=== PATIENT | female | born 1940 | race Native Hawaiian/Other Pacific Islander ===

== ENCOUNTER 2016-08-30 18:13 | Emergency (ER) | payer OTHER ==
[~2016-08-30] VITALS: Ht 157.5 cm; Wt 81.2 kg
[~2016-08-30 18:13] MED LIST: CELEXA20 MG PO; CLARITIN10 MG PO; CYCL10TA35 PO; FURO20TA67 PO; HEARTBURN150 MG PO; LAMICTAL ODT100 MG PO; LISI20TA11 PO; MECLIZINE25 M1 PO; MELOXICAM15 MG PO; METOPROLOL25 M1 PO; NASONEX50 MCG/AC; NEXIUM40 M1 PO; OMEP40CA PO; RANI150T78 PO; SINGULAIR10 MG PO; TRAM50TA PO; TRAZ100T PO; TRAZODONE300 MG PO; VENLAFAXINE75 M2 PO
[2016-08-30 19:45] LABS: PLATELET COUNT 230 K/uL (152-353)
[2016-08-30 20:05] LABS: POTASSIUM 3.4 mmol/L (3.6-5.2)
[2016-08-30 21:26] VITALS: BP 167/61; TEMP 99.1
== END 2016-08-30 21:10 | disposition home or self-care (01) ==
LOC: ED 18:13
PROVIDERS: Emergency Medicine
DX: J11.1 Influenza due to unidentified influenza virus with other respiratory manifestations (principal); J98.01 Acute bronchospasm
CPT/HCPCS: 36415; 80053; 85027; 87081; 87804; 87880; 96372; 99283; J2930

== ENCOUNTER 2017-05-27 17:01 | Emergency (ER) | payer OTHER ==
[~2017-05-27] VITALS: Ht 157.5 cm; Wt 79.4 kg
[2017-05-27 17:04] VITALS: TEMP 97.8
[2017-05-27 18:48] VITALS: BP 182/80
== END 2017-05-27 19:05 | disposition home or self-care (01) ==
LOC: ED 17:01
DX: S00.83XA Contusion of other part of head, initial encounter (principal); S50.812A Abrasion of left forearm, initial encounter; M47.892 Other spondylosis, cervical region; W01.0XXA Fall on same level from slipping, tripping and stumbling without subsequent striking against object, initial encounter; Y92.098 Other place in other non-institutional residence as the place of occurrence of the external cause
CPT/HCPCS: 96372; 99283; J1885

== ENCOUNTER 2017-05-31 14:12 | Outpatient (CLI) | payer OTHER ==
[2017-05-31] MEDS ORDERED: RANITIDINE 150150 MG PO (15:31)
[2017-05-31] MEDS ORDERED: MECLIZINE25 MG OR (15:32)
[2017-05-31] MEDS ORDERED: KETO10TA34 PO (15:33)
[2017-05-31] MEDS ORDERED: ALLEGRA ALRG180 M1 PO (15:34)
== END 2017-05-31 14:17 | disposition short-term general hospital (02) ==
LOC: AMB 14:12
DX: R51 Headache (principal); R11.2 Nausea with vomiting, unspecified; W18.39XA Other fall on same level, initial encounter; Y92.098 Other place in other non-institutional residence as the place of occurrence of the external cause
CPT/HCPCS: A0425; A0427

== ENCOUNTER 2017-05-31 14:17 | Inpatient (IN) | payer OTHER ==
[~2017-05-31] VITALS: Ht 160 cm; Wt 82.3 kg
[2017-05-31 14:25] VITALS: BP 215/88; TEMP 98.5
[2017-05-31 14:58] LABS: PLATELET COUNT 266 K/uL (152-353)
[2017-05-31 14:59] LABS: POTASSIUM 3.7 mmol/L (3.6-5.2); SODIUM 141 mmol/L (136-145)
[2017-05-31 15:25] VITALS: BP 150/88
[2017-05-31] MEDS ORDERED: RANITIDINE 150150 MG PO (15:31)
[2017-05-31] MEDS ORDERED: MECLIZINE25 MG OR (15:32)
[2017-05-31] MEDS ORDERED: KETO10TA34 PO (15:33)
[2017-05-31] MEDS ORDERED: ALLEGRA ALRG180 M1 PO (15:34)
[2017-05-31 18:26] VITALS: BP 156/61; TEMP 98.3; Ht 160 cm; Wt 82.3 kg
[2017-05-31 20:00] VITALS: BP 152/61; TEMP 98
[2017-06-01] VITALS: BP 166/68; BP 98/50; TEMP 98.6; TEMP 99.2
[2017-06-01 04:00] VITALS: BP 158/65; TEMP 98.7
--- NOTE | 2017-06-01 05:24 | NUR ---
05/31/17 1930: PT EXPERIENCING A LOT OF PAIN, HEADACHE. PT ALLERGIC TO MULTIPLE MEDICATIONS. STATED TORDOL DID NOT HELP WITH HER PAIN. PT ALSO HAS NAUSEA AND VOMITING.ZOFRAN HAD BEEN GIVEN AT 1700. ER DOCTOR NOTIFIED AT 1945 FOR PAIN MED THAT PT WAS NOT ALLERGIC TO. ORDER RECEIVED. 05/31/17 2100: ANOTHER DOSE OF ZOFRAN GIVEN. 05/31/17 2300: PT CONTINUES TO BE NAUSEATED AND VOMITING SMALL AMOUNTS. UNABLE TO DRINK OR EAT. ER DOCTOR NOTIFIED ABOUT VOMITING, ORDERS RECEIVED.
--- NOTE | 2017-06-01 05:34 | NUR ---
05/31/17 2345:IV FLUID,NS AT 76, GOING. STATED TO TRY FLUIDS FIRST BEFORE GIVING PHENERGAN.
--- NOTE | 2017-06-01 05:42 | NUR ---
06/01/17 0200: PT RESTING WELL, NO FURTHER VOMITING. PT HAS NOT ASKED FOR PAIN MED OR FOR NAUSEA MED.
[2017-06-01 06:06] LABS: POTASSIUM 3.5 mmol/L (3.6-5.2); SODIUM 137 mmol/L (136-145)
[2017-06-01 08:00] VITALS: BP 109/79; TEMP 97.7
[2017-06-01 08:21] LABS: PLATELET COUNT 264 K/uL (152-353)
[2017-06-01 12:00] VITALS: BP 110/65; TEMP 98
[2017-06-01 16:00] VITALS: BP 148/60; TEMP 100.2
[2017-06-01 20:00] VITALS: BP 139/58; TEMP 98.7
[2017-06-02] VITALS: BP 154/61; TEMP 98.6
[2017-06-02 04:00] VITALS: BP 138/54; TEMP 98.6
[2017-06-02 05:43] LABS: POTASSIUM 3.3 mmol/L (3.6-5.2); SODIUM 140 mmol/L (136-145)
[2017-06-02 05:48] LABS: PLATELET COUNT 218 K/uL (152-353)
[2017-06-02 08:00] VITALS: BP 163/65; TEMP 97.9
[2017-06-02 12:00] VITALS: BP 118/51; TEMP 98
[2017-06-02 16:00] VITALS: BP 149/63; TEMP 98.1
[2017-06-02 20:00] VITALS: BP 156/61; TEMP 98.5
[2017-06-03] VITALS: BP 139/59; TEMP 98.7
[2017-06-03 04:00] VITALS: BP 154/69; TEMP 98.6
[2017-06-03 05:35] LABS: PLATELET COUNT 205 K/uL (152-353)
[2017-06-03 05:56] LABS: POTASSIUM 3.6 mmol/L (3.6-5.2); SODIUM 138 mmol/L (136-145)
[2017-06-03 08:00] VITALS: BP 149/71; TEMP 98
[2017-06-03 12:00] VITALS: BP 140/67; TEMP 98
[2017-06-03 16:00] VITALS: BP 183/74; TEMP 98
[2017-06-03 20:00] VITALS: BP 159/60; TEMP 98.6
[2017-06-04] VITALS: BP 167/70; TEMP 98.6
[2017-06-04 04:00] VITALS: BP 166/67; TEMP 97.3
[2017-06-04 05:33] LABS: PLATELET COUNT 206 K/uL (152-353)
[2017-06-04 06:05] LABS: POTASSIUM 4.2 mmol/L (3.6-5.2); SODIUM 139 mmol/L (136-145)
[2017-06-04 08:00] VITALS: BP 155/62; TEMP 97.5
[2017-06-04 12:00] VITALS: BP 164/68; TEMP 98
[2017-06-04 16:00] VITALS: BP 164/68; TEMP 98
[2017-06-04 20:00] VITALS: BP 157/52; TEMP 98.4
[2017-06-05] VITALS: BP 160/86; TEMP 98.3
[2017-06-05 04:00] VITALS: BP 163/54; TEMP 98.2
[2017-06-05 06:31] LABS: PLATELET COUNT 199 K/uL (152-353)
[2017-06-05 06:43] LABS: POTASSIUM 3.3 mmol/L (3.6-5.2); SODIUM 139 mmol/L (136-145)
[2017-06-05 08:00] VITALS: BP 165/65; TEMP 98.6
[2017-06-05 11:46] VITALS: BP 157/51; TEMP 98.7
--- NOTE | 2017-06-05 14:23 | NUR ---
GAVE A FLEETS ENEMA. PT KATRINA WELL.
[2017-06-05 16:00] VITALS: BP 179/68; TEMP 98.6
--- NOTE | 2017-06-05 17:52 | NUR ---
PT C/O MID CHEST/EPIGASTRISC PAIN 09/26. PT VOMITING AFTER EATING RICE. PT STATED SHE FELT LIKE IT WAS INDIGESTION OR SHE SWALLOWED AIR. DR. EPSTEIN NOTIFIED.
[2017-06-05 20:00] VITALS: BP 166/57; TEMP 98
[2017-06-06] VITALS: BP 145/66; TEMP 97.3
[2017-06-06 04:00] VITALS: BP 140/70; TEMP 98
[2017-06-06 07:04] LABS: POTASSIUM 3.7 mmol/L (3.6-5.2); SODIUM 139 mmol/L (136-145)
[2017-06-06 07:09] LABS: PLATELET COUNT 224 K/uL (152-353)
[2017-06-06 08:00] VITALS: BP 173/78; TEMP 97.9
[2017-06-06 12:00] VITALS: BP 131/57; TEMP 98
[2017-06-06 16:00] VITALS: BP 162/67; TEMP 98
[2017-06-06] MEDS ORDERED: AMLODIPINE BESYLATE PO (18:02)
== END 2017-06-06 18:15 | disposition home or self-care (01) | DRG 78 ==
LOC: ED 14:17 → MED/SURG 14:50
PROVIDERS: Emergency Medicine; ADMIT Family Medicine
DX: I67.4 Hypertensive encephalopathy (principal); I16.1 Hypertensive emergency; R51 Headache; R11.2 Nausea with vomiting, unspecified; R53.1 Weakness; D72.828 Other elevated white blood cell count; E83.42 Hypomagnesemia; E88.09 Other disorders of plasma-protein metabolism, not elsewhere classified; K59.09 Other constipation
CPT/HCPCS: 36415; 80053; 83735; 85027; 87804; 94760; 96365; 96366; 96374; 96375; 99284; J0360; J1885; J2300; J2405; J3475

== ENCOUNTER 2018-02-06 20:25 | Emergency (ER) | payer OTHER ==
[~2018-02-06] VITALS: Ht 157.5 cm; Wt 77.1 kg
[~2018-02-06 20:25] MED LIST changes: +ALLEGRA ALRG180 M1 PO; +AMLODIPINE BESYLATE PO; +KETO10TA34 PO; +MECLIZINE25 MG OR; +RANITIDINE 150150 MG PO
[2018-02-06 20:31] VITALS: TEMP 97.7
[2018-02-06 23:11] LABS: PLATELET COUNT 258 K/uL (152-353)
[2018-02-06 23:18] LABS: POTASSIUM 3.2 mmol/L (3.6-5.2)
[2018-02-07 01:11] VITALS: BP 140/78
== END 2018-02-07 01:11 | disposition home or self-care (01) ==
LOC: ED 20:25
PROVIDERS: Internal Medicine
DX: R11.2 Nausea with vomiting, unspecified (principal); E86.0 Dehydration; E87.6 Hypokalemia; N39.0 Urinary tract infection, site not specified
CPT/HCPCS: 36415; 80053; 81000; 82150; 83690; 85027; 96360; 99284; J2405

== ENCOUNTER 2018-02-26 22:03 | Emergency (ER) | payer OTHER ==
[~2018-02-26] VITALS: Ht 157.5 cm; Wt 77.1 kg
[2018-02-26] MEDS ORDERED: METO25TA4 PO (22:16)
[2018-02-27 00:30] VITALS: BP 167/68; TEMP 97
== END 2018-02-27 00:30 | disposition home or self-care (01) ==
LOC: ED 22:03
DX: I10 Essential (primary) hypertension (principal); R51 Headache
CPT/HCPCS: 99281

== ENCOUNTER 2018-03-16 16:55 | Emergency (ER) | payer OTHER ==
[~2018-03-16] VITALS: Ht 157.5 cm; Wt 77.1 kg
[~2018-03-16 16:55] MED LIST changes: +METO25TA4 PO
[2018-03-16 18:17] LABS: POTASSIUM 3.6 mmol/L (3.6-5.2)
[2018-03-16 18:22] LABS: PLATELET COUNT 266 K/uL (152-353)
[2018-03-16 20:36] VITALS: BP 166/75; TEMP 98.9
== END 2018-03-16 20:50 | disposition home or self-care (01) ==
LOC: ED 16:55
DX: G43.909 Migraine, unspecified, not intractable, without status migrainosus (principal)
CPT/HCPCS: 36415; 80053; 81000; 85027; 96365; 96374; 96375; 96376; 99284; J1100; J1885; J2405; J7120

== ENCOUNTER 2021-01-18 09:16 | Emergency (ER) | payer OTHER ==
[~2021-01-18] VITALS: Ht 157.5 cm; Wt 59.0 kg
[2021-01-18 09:30] VITALS: TEMP 99.1
[2021-01-18 10:28] LABS: PLATELET COUNT 160 K/uL (152-353)
[2021-01-18 10:38] LABS: POTASSIUM 3.3 mmol/L (3.6-5.2)
[2021-01-18 12:05] VITALS: BP 163/63
== END 2021-01-18 12:05 | disposition home or self-care (01) ==
LOC: ED 09:16
PROVIDERS: Emergency Medicine
DX: R42 Dizziness and giddiness (principal); E87.6 Hypokalemia; H92.03 Otalgia, bilateral; F41.8 Other specified anxiety disorders
CPT/HCPCS: 80053; 85027; 96374; 99284